=== PATIENT | female | born 1995 | race Two or more races ===

== ENCOUNTER 2016-08-17 20:33 | Emergency (ER) | payer SELFPAY ==
[~2016-08-17] VITALS: Ht 154.9 cm; Wt 72.6 kg
[2016-08-17] MEDS ORDERED: LIDO:MAALOX:DONNATAL 1:1:1 15 ML SINGLE DOSE ONE (21:03)
[2016-08-17] MEDS ORDERED: LIDO:MAALOX:DONNATAL 1:1:1 15 ML SINGLE DOSE SWSW ONE (21:30)
[2016-08-17] MEDS ORDERED: FAMO40TA57 PO (21:34)
--- NOTE | 2016-08-17 21:34 | PHYS DOC ---
Past Medical History Past Medical History: No Pertinent History Past Surgical History: No Surgical History Alcohol Use: None Adult General Chief Complaint Chief Complaint: ABDOMINAL PAIN HPI HPI 21-year-old otherwise healthy female presenting to the emergency department today with epigastric abdominal pain that she describes as a burning sensation that is worse when she eats and worse with laying down. It sometimes radiates up into her chest. It is mild to moderate and mildly alleviated by Tums and Pepcid. She denies unilateral leg swelling hemoptysis personal or family history of blood clotting disorders. She denies diabetes hypertension hyperlipidemia family history of heart disease. Review of systems is negative for fevers chills nausea vomiting diaphoresis. All other review of systems is negative unless otherwise noted in history of present illness. Review of Systems Review of Systems SEE ABOVE. Current Medications Current Medications Current Medications Medications (Trade) Dose Ordered Sig/Asiya Start Time Stop Time Status Last Admin Dose Admin Multi-Ingredient Mouthwash/Gargle (Gi Cocktail Single Dose) 15 ml 1X ONCE 08/17/16 21:30 08/17/16 21:31 DC 08/17/16 21:29 15 ML Allergies Allergies Allergies Coded Allergies Type Severity Reaction Last Updated Verified No Known Drug Allergies 06/10/15 No Physical Exam Physical Exam Constitutional: Well developed, well nourished, no acute distress, non-toxic appearance. HENT: Normocephalic, atraumatic, bilateral external ears normal, oropharynx moist, no oral exudates, nose normal. [] Eyes: PERRLA, EOMI, conjunctiva normal, no discharge. Neck: Normal range of motion, no tenderness, supple, no stridor. [] Cardiovascular:Heart rate regular rhythm, no murmur Lungs & Thorax: Bilateral breath sounds clear to auscultation Abdomen: Soft nontender abdomen without rebound tenderness or guarding present. Negative McBurneys point. Negative Hobson sign. No ecchymosis present. Skin: Warm, dry, no erythema, no rash. Back: No tenderness, no CVA tenderness. [] Extremities: No tenderness, no cyanosis, no clubbing, ROM intact, no edema. Neurologic: Alert and oriented X 3, normal motor function, normal sensory function, no focal deficits noted. Psychologic: Affect normal, judgement normal, mood normal. [] Current Patient Data Vital Signs Vital Signs Date Time Temp Pulse Resp B/P (MAP) Pulse Ox O2 Delivery O2 Flow Rate FiO2 08/17/16 21:54 97.3 88 18 118/60 (79) 98 Room Air 97.3 Lab Values Laboratory Tests Test 08/17/16 21:05 Urine Test Negative (NEG) EKG EKG [] Radiology/Procedures Radiology/Procedures []Chest x-ray reviewed by myself shows no obvious infiltrate or pneumothorax present. No obvious acute cardiopulmonary process present. Course & Med Decision Making Course & Med Decision Making Pertinent Labs and Imaging studies reviewed. (See chart for details) 21-year-old female presenting the emergency department with epigastric abdominal pain radiating up into her chest. Pertinent vital signs afebrile with normal heart rate saturating well. Pertinent physical exam findings showed a nontender gallbladder nontender appendix. EKG unremarkable. Chest x-ray unremarkable. The patient was given a GI cocktail which improved her symptoms. On reexamination she was feeling better. The patient was then discharged home in stable condition to follow up with their primary care physician over the next 2-3 days. They were to return if their symptoms worsened or if they were concerned for any reason. [id number] discharge instructions and return precautions were given. Patient's questions were answered to their satisfaction. Patient is comfortable plan. Dragon Disclaimer Dragon Disclaimer This electronic medical record was generated, in whole or in part, using a voice recognition dictation system. Departure Departure Impression: Primary Impression: Epigastric abdominal pain Disposition: HOME, SELF-CARE Condition: STABLE Referrals: NO PCP (PCP) VELMA RODRIGUEZ MD Patient Instructions: Abdominal Pain (Nonspecific) Additional Instructions: Thank you for allowing us to participate in your care today. Followup with your primary care physician in 3 days if your symptoms do not improve. If you do not have a primary care provider you can ask for a list of our primary care providers. Return to the emergency department you have any new or concerning findings. This should be evaluated by the primary care physician and any necessary consulting services for continued management within a few days after discharge. Return to emergency room if you have any new or concerning symptoms including but not limited to fever, chills, nausea, vomiting, intractable pain, any new rashes, chest pain, shortness of air, uncontrolled bleeding, difficulty breathing, and/or vision loss. Scripts Famotidine (PEPCID) 40 Mg Tablet 40 MG PO HS, #14 TAB 0 Refills Prov: ROCHA,SAMANTHA L MD 08/17/16 SAMANTHA ROCHA MD August 17, 2016 21:34
[2016-08-17 21:54] VITALS: BP 118/60
[2016-08-17 22:12] LABS: NEG OBC UR NEG; POS OBC UR POS
--- NOTE | 2016-08-18 08:11 | RAD ---
EXAM: CHEST 2 VIEWS History: Epigastric pain COMPARISON: None available. TECHNIQUE: PA and lateral chest radiographs FINDINGS: The cardiomediastinal silhouette is within normal limits. The lungs are clear bilaterally. The costophrenic sulci are clear and well demarcated bilaterally. IMPRESSION: No radiographic evidence of an acute cardiopulmonary abnormality.
--- NOTE | 2016-08-18 12:55 | EKG ---
[facility] [address] [place] [id number] Test Date: 2016-08-17 Test Time: 21:27:50 Pat Name: VONDA MORENO Department: Room: Gender: F Plasticator: ARLIN : 1995 Requested By: SAMANTHA ROCHA Order Number: [id number] Reading MD: Atilio Mayes Measurements Intervals [place] Rate: 89 P: 45 VA: 132 QRS: 72 QRSD: 90 T: 43 QT: 366 QTc: 446 Interpretive Statements SINUS RHYTHM Electronically Signed On 08-20-2016 9:53:24 CDT by Atilio Mayes
== END 2016-08-17 22:27 | disposition home or self-care (01) ==
LOC: ER 20:33
DX: R10.13 Epigastric pain (principal)
CPT/HCPCS: 71020; 81025; 93005; 99285-25